=== PATIENT | female | born 2000 | race Caucasian/White ===

== ENCOUNTER 2020-09-09 11:42 | Emergency (ER) | payer OTHER, SELFPAY ==
[2020-09-09 11:50] VITALS: BP 120/70; PULSE 83; RESP 12; TEMP 36.9; O2SAT 100
--- NOTE | 2020-09-09 12:03 | ED.URI ---
HPI - URI/Sore Throat General Chief Complaint: Upper Respiratory Infection Stated Complaint: cough/sinus drainage/ear pain Time Seen by Provider: 09/09/20 11:46 Source: patient Mode of arrival: ambulatory Limitations: no limitations History of Present Illness HPI Narrative: 20-year-old female presents to [facility] with complaints of sinus congestion, dry cough, runny nose and postnasal drainage for the past 2 weeks. Patient reports that she has had a cough which is worse in the morning and at night for the past 2 to 3 months. Patient also reports intermittent shortness of breath and wheezing but feels that this is from her asthma. Patient does report history of asthma and uses inhalers. Patient denies fever, bites, chills, nausea, vomiting or diarrhea. Patient denies recent travel. 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 MD elicited complaint: cough, sore throat, rhinorrhea, nasal congestion and sinus pain Pertinent past history: asthma Onset (ago): week(s) (2) Able to tolerate fluids by mouth: Yes Treatments prior to arrival: cold medicine Related Data Home Medications Medication Instructions Recorded Confirmed budesonide [Pulmicort Flexhaler] 2 inh INHALATION Q12H 09/09/20 09/09/20 norgestrel-ethinyl estradiol 1 tablet PO DAILY 09/09/20 09/09/20 [Ignacia (28)] Allergies Allergy/AdvReac Type Severity Reaction Status Date / Time No Known Allergies Allergy Verified 09/09/20 11:49 Review of Systems Constitutional: Constitutional: Denies chills, Denies fever(s) and Denies weakness ENT: Denies dysphagia, Denies dizziness, Reports nasal congestion and Denies sore throat Cardiovascular: Cardiovascular: Denies chest pain Respiratory: Respiratory: Denies chest congestion, Reports cough, Reports dyspnea and Reports wheezing Gastrointestinal: Gastrointestinal: Denies abdominal pain, Denies diarrhea, Denies nausea and Denies vomiting Integumentary/Breasts: Skin/Breast: Denies rash Neurologic: Denies dizziness Endocrine: Endocrine: Denies fatigue [facility] Past Medical History Medical History (Updated 09/09/20 @ 12:11 by Renata Campbell APRN) Asthma Social History Social History (Updated 09/09/20 @ 12:05 by Renata M. Shannan, [employer]) Smoking status: Never smoker Comments At time of signature, I agree with nursing past medical, surgical, social and family history. There is no relevant family history pertinent to the presenting complaint. Exam Const: General: no acute distress and alert Orientation/consciousness: patient oriented x3 HENMT: General nose exam: Normal external nose present Face and sinus: sinus tenderness frontal Mouth: Yes lip normal Teeth and gingiva: dentition normal Other: nasal congestion noted, small amount of clear post-nasal drainage noted, mild amount of scar tissue noted to bilateral TMs Neck: Neck: normal visual inspection, no lymphadenopathy and no meningeal signs Chest: Chest palpation & inspection: normal inspection of the chest Resp: Effort & Inspection: normal respiratory effort, not labored and not tachypneic Auscultation: clear to auscultation bilaterally, no rales, no rhonchi and no wheezes Cardio: Rate: regular rate Rhythm: regular rhythm Skin: General skin exam: normal color Rashes: no rashes Neuro: General: patient oriented x3 and moves all extremities Speech: normal speech Psych: Appearance: grossly normal Mental Status: mental status grossly normal Affect: normal affect Thought content: Yes Normal thought content present Course Vital Signs Vital signs: Vital Signs Temperature 36.9 C 09/09/20 11:50 Pulse Rate 83 09/09/20 11:50 Respiratory Rate 12 09/09/20 11:50 Blood Pressure 120/70 09/09/20 11:50 Pulse Oximetry 100 09/09/20 11:50 Temperature 36.9 C 09/09/20 11:50 Pulse Rate 83 09/09/20 11:50 Respiratory Rate 12 09/09/20 11:50 Blood Pressure 120/70
== END 2020-09-09 12:20 | disposition home or self-care (01) ==
PROVIDERS: Emergency Provider Nurse Practitioner Family
DX: J01.10 Acute frontal sinusitis, unspecified (principal); Z20.828 Contact with and (suspected) exposure to other viral communicable diseases; J45.909 Unspecified asthma, uncomplicated
CPT/HCPCS: 99213; G0463

== ENCOUNTER 2021-10-25 16:59 | Emergency (ER) | payer OTHER, SELFPAY ==
[2021-10-25 17:05] VITALS: BP 154/95; PULSE 96; RESP 18; TEMP 37.2; O2SAT 100
--- NOTE | 2021-10-25 17:09 | ED.URI ---
HPI - URI/Sore Throat General Chief Complaint: Upper Respiratory Infection Stated Complaint: Sore Throat Time Seen by Provider: 10/25/21 17:18 Source: patient and RN notes reviewed Mode of arrival: ambulatory Limitations: no limitations History of Present Illness HPI Narrative: 21-year-old female presents with concern for sore throat, nasal congestion, postnasal drainage, ear fullness. She reports she has been taking Tylenol and ibuprofen without relief. She denies body aches, chills, fever, sweats, vomiting, diarrhea,. MD elicited complaint: cough and sore throat Related Data Home Medications Medication Instructions Recorded Confirmed norgestrel-ethinyl estradiol 1 tablet PO DAILY 09/09/20 09/09/20 [Ignacia (28)] Allergies Allergy/AdvReac Type Severity Reaction Status Date / Time No Known Allergies Allergy Verified 09/09/20 11:49 Review of Systems Review of Systems: CONSTITUTIONAL: Denies malaise, chills, sweats, or fever. EYES: Denies visual changes, redness, or discharge. ENT: Reports rhinorrhea, sore throat, otalgia. Denies congestion, sinus pain CARDIOVASCULAR: Denies chest pain, palpitations, or edema. RESPIRATORY: Denies cough. Denies dyspnea. GASTROINTESTINAL: Denies abdominal pain, nausea, vomiting, diarrhea SKIN: Denies rash or itching. MUSCULOSKELETAL: Denies myalgia. NEUROLOGIC: Denies headache. All systems reviewed & are unremarkable except as noted in HPI and below PMFSH Past Medical History Medical History (Updated 10/25/21 @ 17:32 by Elda Rivera NP) Asthma Social History Social History (Updated 09/09/20 @ 12:05 by Renata Campbell APRN) Smoking status: Never smoker Comments At time of signature, agree with nursing past medical, surgical, social and family history. There is no relevant family history pertinent to the presenting complaint Exam Narrative: GENERAL: Well-appearing, well-nourished, and in no acute distress. HEAD: Normocephalic EYES: PERRLA, conjunctivae clear ENT: Nares clear, yellow postnasal discharge. Mucous membranes moist. TM pearly beckford with dull light reflex bilaterally; no tragal tenderness. Oropharynx erythematous without lesions. Tonsils not enlarged and without exudate, no drooling, no hoarseness, no trismus, uvula midline. NECK: Supple. No lymphadenopathy CHEST: Clear to auscultation, breath sounds equal. No wheezing, rhonchi, rales, or stridor. No respiratory distress, speaks in full sentences. HEART: Regular rate and rhythm. No murmur heard. SKIN: Warm, dry, no rash. NEURO: Alert and oriented x3. PSYCH: Normal mood and affect Course Course Emergency Course: Patient is aware of diagnosis, understands and agrees to treatment plan. Anticipatory guidance given. Patient agrees to follow-up as directed and is aware of reasons to seek care at the emergency department. Portions of this record may have been created with voice recognition software Vital Signs Vital signs: Vital Signs Temperature 98.9 F 10/25/21 17:05 Pulse Rate 96 10/25/21 17:05 Respiratory Rate 18 10/25/21 17:05 Blood Pressure 154/95 H 10/25/21 17:05 Pulse Oximetry 100 10/25/21 17:05 Temperature 98.9 F 10/25/21 17:05 Pulse Rate 96 10/25/21 17:05 Respiratory Rate 18 10/25/21 17:05 Blood Pressure 154/95 H 10/25/21 17:05 Pulse Oximetry 100 10/25/21 17:05 Reviewed. MDM - URI/Sore Throat MDM Narrative Medical decision making narrative: Differential diagnosis considered: Melendez virus, strep pharyngitis, allergic rhinitis, upper respiratory tract infection, sinusitis, rhinosinusitis, nasopharyngitis. viral pharyngitis, otitis media, otitis externa, pneumonia, bronchitis, viral cough syndrome, viral syndrome, and influenza. Exam findings show no acute concerns or changes; patient is non-toxic appearing and is in no distress. Patient is appropriate for outpatient treatment and follow-up. Lab Data Attestation: I reviewed the patient's lab results. Critical
== END 2021-10-25 17:44 | disposition home or self-care (01) ==
PROVIDERS: Emergency Provider Nurse Practitioner; PCP Hospitalist
DX: J06.9 Acute upper respiratory infection, unspecified (principal); J45.909 Unspecified asthma, uncomplicated
CPT/HCPCS: 87081; 87880; 99213; G0463